=== PATIENT | male | born 1950 | race Caucasian/White ===

== ENCOUNTER 2022-11-25 12:27 | Inpatient (IN) | payer OTHER, MEDICARE ==
[2022-11-25 15:38] LABS: BASO % 0.5 % (0-2.0); EOS % 0.1 % (0-4.5); HEMATOCRIT 43.4 % (35.4-49); HEMOGLOBIN 14.5 GM/dL (11.7-16.9); LYMPH % 3.3 % (8-40); MCH 30.4 pg (25.7-33.7); MCHC 33.3 g/dl (32.0-35.9); MEAN CELL VOLUME 91.3 fl (80-96); MEAN PLT VOLUME 8.8 fl (7.5-11.1); MONO % 9.5 % (3.8-10.2); NEUT % 86.6 % (42.8-82.8); PLATELET COUNT 161 10^3/uL (134-434); RBC 4.75 M/mm3 (4.00-5.60); RDW 14.2 % (11.9-15.9); WHITE BLOOD COUNT 9.5 K/mm3 (4.0-10.0)
[2022-11-25 15:39] LABS: VENOUS BASE EXCESS -4.4 mmol/L (-2-2); VENOUS O2 SATURATION 94.9 % (70-80); VENOUS PCO2 33.6 mmHg (38-52); VENOUS PH 7.385 (7.310-7.410)
[2022-11-25 16:00] LABS: ALBUMIN 3.5 g/dl (3.4-5.0); BLOOD UREA NITROGEN 21.9 mg/dL (7-18); CALCIUM 9.9 mg/dL (8.5-10.1); MAGNESIUM 1.7 mg/dL (1.8-2.4)
[2022-11-25 16:03] LABS: CREATININE 1.4 mg/dL (0.55-1.3)
[2022-11-25 16:04] LABS: BILIRUBIN,TOTAL 0.8 mg/dL (0.2-1); TOT PROT 6.7 g/dl (6.4-8.2)
[2022-11-25 16:08] LABS: N-TERMINAL BNP 440.9 pg/ml (5-125)
[2022-11-25] MEDS ORDERED: ACETAMINOPHEN 1000 MG/100 ML BAG IVPB ONE (16:18)
[2022-11-25] MEDS ORDERED: ACETAMINOPHEN INJECTION 100 ML IVPB ONE (16:19)
[2022-11-25] MEDS ORDERED: SODIUM CHLORIDE 0.9% 1000 ML INFUS.BAG IV ONE (19:49)
[2022-11-25] MEDS ORDERED: DEXAMETHASONE SOD PHOSPHATE 4 MG/1 ML VIAL IVPUSH ONE (20:04)
[2022-11-25] MEDS ORDERED: DEXAMETHASONE SOD PHOSPHATE 4 MG/1 ML VIAL ONE (20:16)
[2022-11-25 20:20] LABS: PH,URINE 5.5 (5.0-8.0); URINE APPEARANCE CLOUDY; URINE BILIRUBIN NEGATIVE (NEGATIVE); URINE COLOR YELLOW; URINE GLUCOSE (UA) NEGATIVE (NEGATIVE); URINE KETONE TRACE (NEGATIVE); URINE LEUK ESTERASE NEGATIVE (NEGATIVE); URINE NITRITE NEGATIVE (NEGATIVE); URINE PROTEIN TRACE (NEGATIVE); URINE UROBILINOGEN 0.2 mg/dL (0.2-1.0)
[2022-11-25] MEDS ORDERED: MAGNESIUM 2GM/50ML STERILE WATER IVPB IVPB ONE (21:13)
[2022-11-25] MEDS ORDERED: REMDESIVIR 200 MG in SODIUM CHLORIDE 250 ML IVPB ONE (21:14)
[2022-11-25] MEDS ORDERED: SODIUM CHLORIDE 1,000 ML IV SCH ×2 (21:30→23:36)
[2022-11-25 21:46] LABS: LACTIC ACID 4.1 mmol/L (0.4-2.0)
[2022-11-25 21:51] LABS: CALCIUM 9.7 mg/dL (8.5-10.1); MAGNESIUM 1.7 mg/dL (1.8-2.4)
[2022-11-25 21:52] LABS: BLOOD UREA NITROGEN 24.1 mg/dL (7-18)
[2022-11-25 21:54] LABS: CREATININE 1.6 mg/dL (0.55-1.3)
[2022-11-25] MEDS ORDERED: SODIUM CHLORIDE 500 ML IV STA (22:13)
[2022-11-25] MEDS ORDERED: HEPARIN NA (PORCINE) 5,000 UNITS/ML 1ML VIAL ONE (22:14)
[2022-11-25] MEDS ORDERED: MAGNESIUM SULFATE IN WATER 2 GM/50 ML IVPB IVPB ONE (22:14)
[2022-11-25] MEDS: HEPARIN NA (PORCINE) 5,000 UNITS/ML 1ML VIAL SQ SCH (22:42)
[2022-11-25] MEDS ORDERED: AZTREONAM 2 GM in DEXTROSE 5%-WATER 100 ML IVPB SCH (23:15)
[2022-11-26] MEDS: DOXYCYCLINE INJECTION 100 MG in DEXTROSE 5%-WATER 100 ML IVPB SCH ×3 (01:43→22:07)
[2022-11-26] MEDS: AZTREONAM 2 GM in DEXTROSE 5%-WATER 100 ML IVPB SCH ×2 (01:48→09:37)
[2022-11-26 03:30] VITALS: BMI 30.9
[2022-11-26] MEDS: HEPARIN NA (PORCINE) 5,000 UNITS/ML 1ML VIAL SQ SCH ×3 (06:30→22:14)
[2022-11-26] MEDS: INSULIN SLIDING SCALE (NOVOLOG) 1 VIAL SQ SCH ×4 (06:44→22:28)
[2022-11-26] MEDS ORDERED: MAGNESIUM 2GM/50ML STERILE WATER IVPB IVPB ONE (08:30)
[2022-11-26 08:48] LABS: BASO % 0.1 % (0-2.0); HEMATOCRIT 38.8 % (35.4-49); LYMPH % 6.2 % (8-40); MCH 30.6 pg (25.7-33.7); MCHC 33.5 g/dl (32.0-35.9); MEAN CELL VOLUME 91.4 fl (80-96); MEAN PLT VOLUME 8.9 fl (7.5-11.1); MONO % 9.6 % (3.8-10.2); NEUT % 84.1 % (42.8-82.8); PLATELET COUNT 162 10^3/uL (134-434); RBC 4.24 M/mm3 (4.00-5.60); RDW 14.3 % (11.9-15.9); WHITE BLOOD COUNT 8.3 K/mm3 (4.0-10.0)
[2022-11-26 09:15] LABS: BLOOD UREA NITROGEN 21.6 mg/dL (7-18); CALCIUM 9.3 mg/dL (8.5-10.1)
[2022-11-26 09:17] LABS: PHOSPHOROUS 1.8 mg/dL (2.5-4.9)
[2022-11-26 09:18] LABS: BILIRUBIN,TOTAL 0.6 mg/dL (0.2-1)
[2022-11-26 09:19] LABS: CREATININE 1.1 mg/dL (0.55-1.3)
[2022-11-26 09:21] LABS: LACTIC ACID 2.2 mmol/L (0.4-2.0)
[2022-11-26] MEDS: DEXAMETHASONE SOD PHOSPHATE 10 MG/1 ML VIAL IVPUSH SCH (09:37)
[2022-11-26] MEDS: REMDESIVIR 100 MG in SODIUM CHLORIDE 250 ML IVPB SCH (09:37)
[2022-11-26] MEDS: MONTELUKAST NA 10 MG TABLET PO SCH (09:37)
[2022-11-26] MEDS ORDERED: BENZOCAINE/MENTH/CETYLPYRD CL 1 EACH LOZENGE MM PRN (09:55)
[2022-11-26] MEDS ORDERED: guaiFENesin/D-M SUGAR-FREE/ACLHOL-FREE 5 ML UNIT DOSE PO PRN (09:55)
[2022-11-26] MEDS ORDERED: ASPIRIN 81 MG CHEWABLE TABLETS PO SCH ×2 (10:00→22:00)
[2022-11-26 12:30] LABS: LACTIC ACID 2.3 mmol/L (0.4-2.0)
[2022-11-26] MEDS ORDERED: SODIUM CHLORIDE 1,000 ML IV SCH (14:30)
[2022-11-26] MEDS ORDERED: SODIUM CHLORIDE 500 ML IV STA (15:11)
[2022-11-26] MEDS: amLODIPine BESYLATE 10 MG TABLET (FP) PO SCH (15:46)
[2022-11-26] MEDS ORDERED: AZITHROMYCIN IVPB 500 MG/250 ML BAG IVPB SCH (16:00)
[2022-11-26] MEDS: CEFTRIAXONE 2 GM in DEXTROSE 5%-WATER 100 ML IVPB SCH (16:17)
[2022-11-26] MEDS ORDERED: NAPH,MB-DB/K PH,MBDB POWDER PACKET PO ONE (19:15)
[2022-11-26 19:36] LABS: LACTIC ACID 3.2 mmol/L (0.4-2.0)
[2022-11-27] MEDS: HEPARIN NA (PORCINE) 5,000 UNITS/ML 1ML VIAL SQ SCH ×3 (06:37→22:43)
[2022-11-27] MEDS: INSULIN SLIDING SCALE (NOVOLOG) 1 VIAL SQ SCH ×4 (06:38→22:42)
[2022-11-27 07:35] LABS: HEMATOCRIT 38.1 % (35.4-49); HEMOGLOBIN 12.8 GM/dL (11.7-16.9); MCH 30.9 pg (25.7-33.7); MCHC 33.6 g/dl (32.0-35.9); MEAN CELL VOLUME 92.1 fl (80-96); MEAN PLT VOLUME 8.2 fl (7.5-11.1); PLATELET COUNT 167 10^3/uL (134-434); RBC 4.14 M/mm3 (4.00-5.60); RDW 13.8 % (11.9-15.9)
[2022-11-27 07:54] LABS: ALBUMIN 2.8 g/dl (3.4-5.0)
[2022-11-27 07:55] LABS: BLOOD UREA NITROGEN 25.4 mg/dL (7-18); CALCIUM 9.4 mg/dL (8.5-10.1); MAGNESIUM 2.3 mg/dL (1.8-2.4)
[2022-11-27 07:58] LABS: PHOSPHOROUS 2.4 mg/dL (2.5-4.9)
[2022-11-27 08:00] LABS: TOT PROT 5.8 g/dl (6.4-8.2)
[2022-11-27 08:02] LABS: CREATININE 1.1 mg/dL (0.55-1.3)
[2022-11-27 08:03] LABS: BILIRUBIN,TOTAL 0.4 mg/dL (0.2-1)
[2022-11-27 08:36] LABS: LACTIC ACID 2.2 mmol/L (0.4-2.0)
[2022-11-27] MEDS: REMDESIVIR 100 MG in SODIUM CHLORIDE 250 ML IVPB SCH (09:54)
[2022-11-27] MEDS: CEFTRIAXONE 2 GM in DEXTROSE 5%-WATER 100 ML IVPB SCH (09:55)
[2022-11-27] MEDS: DOXYCYCLINE INJECTION 100 MG in DEXTROSE 5%-WATER 100 ML IVPB SCH ×2 (09:55→22:43)
[2022-11-27] MEDS: DEXAMETHASONE SOD PHOSPHATE 10 MG/1 ML VIAL IVPUSH SCH (09:55)
[2022-11-27] MEDS: MONTELUKAST NA 10 MG TABLET PO SCH (09:56)
[2022-11-27] MEDS: LISINOPRIL 20 MG TABLET PO SCH (09:57)
[2022-11-27] MEDS: ASPIRIN COATED 81 MG TABLET.EC PO SCH (09:57)
[2022-11-27] MEDS: amLODIPine BESYLATE 10 MG TABLET (FP) PO SCH (09:57)
[2022-11-27] MEDS: NAPH,MB-DB/K PH,MBDB POWDER PACKET PO SCH (22:38)
[2022-11-27] MEDS: ATORVASTATIN CA 20 MG TABLET (FP) PO SCH (22:38)
[2022-11-28] MEDS: INSULIN SLIDING SCALE (NOVOLOG) 1 VIAL SQ SCH ×4 (06:01→21:20)
[2022-11-28] MEDS: HEPARIN NA (PORCINE) 5,000 UNITS/ML 1ML VIAL SQ SCH ×3 (06:01→21:02)
[2022-11-28 07:54] LABS: HEMATOCRIT 36.5 % (35.4-49); HEMOGLOBIN 12.3 GM/dL (11.7-16.9); MCH 30.7 pg (25.7-33.7); MCHC 33.6 g/dl (32.0-35.9); MEAN CELL VOLUME 91.3 fl (80-96); PLATELET COUNT 200 10^3/uL (134-434); RDW 13.9 % (11.9-15.9); WHITE BLOOD COUNT 7.1 K/mm3 (4.0-10.0)
[2022-11-28 08:19] LABS: BLOOD UREA NITROGEN 27.1 mg/dL (7-18); CALCIUM 9.5 mg/dL (8.5-10.1)
[2022-11-28 08:20] LABS: ALBUMIN 2.6 g/dl (3.4-5.0)
[2022-11-28 08:22] LABS: PHOSPHOROUS 2.7 mg/dL (2.5-4.9)
[2022-11-28 08:23] LABS: BILIRUBIN,TOTAL 0.4 mg/dL (0.2-1); CREATININE 0.9 mg/dL (0.55-1.3); TOT PROT 5.7 g/dl (6.4-8.2)
[2022-11-28] MEDS: REMDESIVIR 100 MG in SODIUM CHLORIDE 250 ML IVPB SCH (10:26)
[2022-11-28] MEDS: CEFTRIAXONE 2 GM in DEXTROSE 5%-WATER 100 ML IVPB SCH (10:26)
[2022-11-28] MEDS: NAPH,MB-DB/K PH,MBDB POWDER PACKET PO SCH ×2 (10:27→21:02)
[2022-11-28] MEDS: DOXYCYCLINE INJECTION 100 MG in DEXTROSE 5%-WATER 100 ML IVPB SCH ×2 (10:27→21:02)
[2022-11-28] MEDS: LISINOPRIL 20 MG TABLET PO SCH (10:27)
[2022-11-28] MEDS: amLODIPine BESYLATE 10 MG TABLET (FP) PO SCH (10:27)
[2022-11-28] MEDS: DEXAMETHASONE SOD PHOSPHATE 10 MG/1 ML VIAL IVPUSH SCH (10:27)
[2022-11-28] MEDS: ASPIRIN COATED 81 MG TABLET.EC PO SCH (10:27)
[2022-11-28] MEDS: MONTELUKAST NA 10 MG TABLET PO SCH (10:27)
[2022-11-28] MEDS ORDERED: REMDESIVIR 100 MG in SODIUM CHLORIDE 250 ML IVPB SCH (14:30)
[2022-11-28] MEDS ORDERED: guaiFENesin/D-M SUGAR-FREE/ACLHOL-FREE 5 ML UNIT DOSE PO PRN (18:52)
[2022-11-28] MEDS: ATORVASTATIN CA 20 MG TABLET (FP) PO SCH (21:02)
[2022-11-28] MEDS ORDERED: guaiFENesin/CODEINE 10 ML UNIT-DOSE CUPS PO SCH (22:00)
[2022-11-29] MEDS: HEPARIN NA (PORCINE) 5,000 UNITS/ML 1ML VIAL SQ SCH ×3 (06:12→21:39)
[2022-11-29] MEDS: INSULIN SLIDING SCALE (NOVOLOG) 1 VIAL SQ SCH ×4 (06:12→21:43)
[2022-11-29] MEDS: REMDESIVIR 100 MG in SODIUM CHLORIDE 250 ML IVPB SCH (10:40)
[2022-11-29] MEDS: DOXYCYCLINE INJECTION 100 MG in DEXTROSE 5%-WATER 100 ML IVPB SCH ×2 (10:40→21:39)
[2022-11-29] MEDS: CEFTRIAXONE 2 GM in DEXTROSE 5%-WATER 100 ML IVPB SCH (10:40)
[2022-11-29] MEDS: DEXAMETHASONE SOD PHOSPHATE 10 MG/1 ML VIAL IVPUSH SCH (10:40)
[2022-11-29] MEDS: ASPIRIN COATED 81 MG TABLET.EC PO SCH (10:41)
[2022-11-29] MEDS: LISINOPRIL 20 MG TABLET PO SCH (10:41)
[2022-11-29] MEDS: amLODIPine BESYLATE 10 MG TABLET (FP) PO SCH (10:41)
[2022-11-29] MEDS: NAPH,MB-DB/K PH,MBDB POWDER PACKET PO SCH (10:41)
[2022-11-29] MEDS: MONTELUKAST NA 10 MG TABLET PO SCH (10:41)
[2022-11-29] MEDS: ATORVASTATIN CA 20 MG TABLET (FP) PO SCH (21:39)
[2022-11-30] MEDS: HEPARIN NA (PORCINE) 5,000 UNITS/ML 1ML VIAL SQ SCH ×3 (06:42→21:57)
[2022-11-30] MEDS: INSULIN SLIDING SCALE (NOVOLOG) 1 VIAL SQ SCH ×4 (06:42→21:57)
[2022-11-30 08:33] LABS: HEMATOCRIT 38.3 % (35.4-49); HEMOGLOBIN 12.8 GM/dL (11.7-16.9); MCH 30.4 pg (25.7-33.7); MCHC 33.3 g/dl (32.0-35.9); MEAN CELL VOLUME 91.3 fl (80-96); MEAN PLT VOLUME 8.3 fl (7.5-11.1); PLATELET COUNT 260 10^3/uL (134-434); RBC 4.19 M/mm3 (4.00-5.60); RDW 13.8 % (11.9-15.9)
[2022-11-30 09:28] LABS: ALBUMIN 2.8 g/dl (3.4-5.0); CALCIUM 9.9 mg/dL (8.5-10.1); MAGNESIUM 2.1 mg/dL (1.8-2.4)
[2022-11-30 09:29] LABS: BLOOD UREA NITROGEN 25.3 mg/dL (7-18)
[2022-11-30 09:31] LABS: PHOSPHOROUS 3.5 mg/dL (2.5-4.9)
[2022-11-30 09:32] LABS: BILIRUBIN,TOTAL 0.2 mg/dL (0.2-1)
[2022-11-30 09:33] LABS: TOT PROT 5.6 g/dl (6.4-8.2)
[2022-11-30] MEDS: MONTELUKAST NA 10 MG TABLET PO SCH (10:10)
[2022-11-30] MEDS: LISINOPRIL 20 MG TABLET PO SCH (10:10)
[2022-11-30] MEDS: amLODIPine BESYLATE 10 MG TABLET (FP) PO SCH (10:10)
[2022-11-30] MEDS: ASPIRIN COATED 81 MG TABLET.EC PO SCH (10:11)
[2022-11-30] MEDS: DEXAMETHASONE SOD PHOSPHATE 10 MG/1 ML VIAL IVPUSH SCH (10:11)
[2022-11-30] MEDS: DOXYCYCLINE INJECTION 100 MG in DEXTROSE 5%-WATER 100 ML IVPB SCH ×2 (10:12→21:57)
[2022-11-30] MEDS: CEFTRIAXONE 2 GM in DEXTROSE 5%-WATER 100 ML IVPB SCH (10:12)
[2022-11-30] MEDS: ATORVASTATIN CA 20 MG TABLET (FP) PO SCH (21:57)
[2022-12-01] MEDS: INSULIN SLIDING SCALE (NOVOLOG) 1 VIAL SQ SCH ×2 (06:34→10:31)
[2022-12-01] MEDS: HEPARIN NA (PORCINE) 5,000 UNITS/ML 1ML VIAL SQ SCH ×2 (06:34→14:09)
[2022-12-01 08:41] LABS: HEMATOCRIT 40.5 % (35.4-49); HEMOGLOBIN 13.6 GM/dL (11.7-16.9); MCH 30.2 pg (25.7-33.7); MCHC 33.5 g/dl (32.0-35.9); MEAN PLT VOLUME 7.8 fl (7.5-11.1); PLATELET COUNT 287 10^3/uL (134-434); RDW 13.7 % (11.9-15.9); WHITE BLOOD COUNT 15.9 K/mm3 (4.0-10.0)
[2022-12-01 09:09] LABS: BLOOD UREA NITROGEN 23.4 mg/dL (7-18)
[2022-12-01 09:14] LABS: BILIRUBIN,TOTAL 0.4 mg/dL (0.2-1); TOT PROT 6.1 g/dl (6.4-8.2)
[2022-12-01] MEDS: ASPIRIN COATED 81 MG TABLET.EC PO SCH (10:22)
[2022-12-01] MEDS: LISINOPRIL 20 MG TABLET PO SCH (10:22)
[2022-12-01] MEDS: amLODIPine BESYLATE 10 MG TABLET (FP) PO SCH (10:22)
[2022-12-01] MEDS: MONTELUKAST NA 10 MG TABLET PO SCH (10:22)
[2022-12-01] MEDS: DEXAMETHASONE SOD PHOSPHATE 10 MG/1 ML VIAL IVPUSH SCH (10:23)
[2022-12-01 10:58] VITALS: BP 126/62; TEMP 97.8
[2022-12-01] MEDS ORDERED: CEFTRIAXONE 2 GM in DEXTROSE 5%-WATER 100 ML IVPB ONE (12:11)
[2022-12-01] MEDS ORDERED: DOXYCYCLINE HYCLATE 100 MG CAPSULE PO ONE (12:13)
[2022-12-01 15:43] VITALS: PULSE 50; RESP 18
== END 2022-12-01 15:55 | disposition home or self-care (01) | DRG 177 ==
LOC: JER 12:27 → JERBED 15:51 → OBSVTOIN 21:16 → J4W 11-26 00:42
PROVIDERS: ADMIT Internal Medicine; ATTEND Internal Medicine
PROC: XW033E5 Introduction of Remdesivir Anti-infective into Peripheral Vein, Percutaneous Approach, New Technology Group 5 (ICD-10-PCS; principal; 2022-11-25)
PROC: 3E0333Z Introduction of Anti-inflammatory into Peripheral Vein, Percutaneous Approach (ICD-10-PCS; 2022-11-25)
DX: U07.1 COVID-19 (principal); J12.82 Pneumonia due to coronavirus disease 2019; J18.9 Pneumonia, unspecified organism; J96.01 Acute respiratory failure with hypoxia; N17.9 Acute kidney failure, unspecified; I10 Essential (primary) hypertension; E78.5 Hyperlipidemia, unspecified; G47.33 Obstructive sleep apnea (adult) (pediatric); E11.9 Type 2 diabetes mellitus without complications; R00.0 Tachycardia, unspecified; R50.9 Fever, unspecified; N28.1 Cyst of kidney, acquired; E83.42 Hypomagnesemia; R94.31 Abnormal electrocardiogram [ECG] [EKG]; Z86.73 Personal history of transient ischemic attack (TIA), and cerebral infarction without residual deficits; E66.9 Obesity, unspecified; Z68.30 Body mass index [BMI] 30.0-30.9, adult; Z88.0 Allergy status to penicillin
CPT/HCPCS: 0241U-QW; 36415; 71045-TC-FY; 71250-TC; 76775-TC; 80048; 80053; 80061; 81003; 82728; 82803; 82962; 83036; 83605; 83615; 83735; 83880; 84100; 84443; 84484; 85025; 85027; 86140; 87040; 87070; 87086; 87205; 87899; 93005; 93010; 94010; 94660; 94761; 97116-GP; 97162-GP; 99285-25; C9399; G0378; J1100; J1644